=== PATIENT | female | born 1955 ===

== ENCOUNTER → 2018-12-13 | Outpatient (CLI) | payer OTHER ==
[~2018-12-13] VITALS: Ht 170.2 cm; Wt 64.9 kg
[~2018-12-13] MED LIST: AMITRIPTYLINE H10 M3 PO; ARMOUR THYROID60 M1 PO; BIMATOPROST2.5 ML OPHTHALMIC; DYMISTA NASAL S23 GM NASAL; FEROCON CAPSUL1 EACH PO; LEVAQUIN 500 M500 M2 PO; SYNTHROID200 MCG PO
[2018-12-13 13:14] VITALS: BP 124/70
--- NOTE | 2018-12-13 13:28 | NUR ---
Pain Clinic Assessment: 1. History of Osteoarthritis: NONE History of Rheumatoid Arthritis: NONE 2. Height: 5 ft. 7 in. 170.2 cm. Weight: 143.0 lb. oz. 64.864 kg. Patient's BMI: 22.4 3. Vital Signs: BP: 124/70 Pulse: 73 Resp: 16 Temp: 02 Sat: 98 ECG Mon: 4. Pain Intensity: 5 5. Fall Risk: Dizziness: N Needs help standing or walking: N Fallen in the last 3 months: N Fall risk comments: 6. Patient on Blood Thinner: None 7. History of Hypertension: N 8. Opioid Therapy greater than 6 weeks: Opiate Contract Signed: 9. Risk Assessment Tool Provided: 10. Functional Assessment Tool: 11. Recreational Drug Use: Never Drug Type: Tobacco Use: Never Smoker Tobacco Type: Amount or Packs/day: How Many Years: Alcohol Use: Yes Frequency: Weekly Quant: 2-3
--- NOTE | 2018-12-21 09:13 | HPC ---
[facility] [address] [place] [address] PAIN MANAGEMENT CONSULTATION Name: FORTUNATO LEE Room #: REG FATEMEH Ben[facility]is.#: [id number] Admission: 12/13/18 ������������������ Attend Phys: Sinan Dickey DO Discharge: ������������������ Date of : 59 Report #: [id number] THIS REPORT FOR: //name// CC: [facility] physician/PCP Sinan North NP DATE OF SERVICE: 12/13/2018 CHIEF COMPLAINT: Neck pain, left upper extremity pain and paresthesias. HISTORY OF PRESENT ILLNESS: As you know, the patient is a very pleasant 63-year-old female who has been referred to our service by her Neurosurgery Team for evaluation for cervical radiculopathy. The patient states her neck pain and left upper extremity pain began about 1 year ago, progressively worsened. She indicates no specific injury or trauma that may have led to symptom recurrence. She has trialled conservative medication therapy, but has not noted significant pain improvement. She sought evaluation through Neurosurgery of [facility], seeing their nurse practitioner, Kelli North to discuss treatment options. The patient was evaluated and advised of the changes noted at her C5-C6 level with left foraminal stenosis, believed to be the source of the symptoms. She was subsequently referred to our clinic to trial cervical epidural injections under fluoroscopic guidance before surgical options are entertained. The patient indicates today pain is continuous, momentary and transient. Describes the pain as gnawing, tender, aching, numbness and tingling. Places current pain score 5/10, daily average of 4-8/10, worst that pain has been is 8/10. The patient states movement tends to exacerbate symptoms, rest tends to improve pain. She has been referred to our service to discuss treatment options for cervical radiculopathy. PAST MEDICAL HISTORY: 1. Anemia. 2. Osteoarthritis, requiring bilateral hip replacements. 3. Chronic headaches. 4. Rasta's thyroiditis. PAST SURGICAL HISTORY: 1. Right total hip arthroplasty. 2. Lumbar fusion at L4 through S1. 3. Left hip replacement. 4. Lumbar fusion, L3-L4. 5. Lumbar decompression. 6. Psoas muscle release. 7. Sinus surgery. [facility] [address] [place] [address] PAIN MANAGEMENT CONSULTATION Name: FORTUNATO LEE Room #: REG [facility].#: [id number] Admission: 12/13/18 ������������������ Attend Phys: Sinan Dickey DO Discharge: ������������������ Date of : 59 Report #: [id number] SOCIAL HISTORY: The patient denies tobacco, alcohol, IV or illicit drug use. She is working, not receiving workmen's compensation nor is she trying to obtain disability benefits. She is not in litigation in regards to her pain. She is unaccompanied at today's visit. REVIEW OF SYSTEMS: Positive for chronic headaches, wearing corrective eyewear, chronic sinus problems with rhinitis, lightheadedness and dizziness, numbness and tingling sensations, Rasta's thyroiditis. All other review of systems negative per 12-point review of systems other than those listed in history of present illness. Pain impact score 62/70 indicating severe interference of daily activities secondary to pain. ALLERGIES: PENICILLIN, SULFA, TETANUS. CURRENT MEDICATIONS: Bimatoprost one drop each eye per day, iron supplementation 1 tab per day, Astelin-fluticasone 1 spray each nostril twice a day, Tensed Thyroid 60 mg once a day, levothyroxine 200 mcg per day. IMAGING: MRI cervical spine obtained 08/24/2018, shows minimal disk bulge at C5-C6 with canal measuring 9-10 mm, uncovertebral joint hypertrophy causing [id number] left and mild right neural foraminal stenosis. There is moderate uncovertebral joint changes at all levels of the cervical spine. At C3-C4, there is a mild right foraminal tapering. No significant impingement of the canal at any level. PHYSICAL EXAMINATION: VITAL SIGNS: Blood pressure 124/70, pulse is 73, respiratory rate 16 and unlabored. The patient is 98% on room air. Height 5 feet 7 inches tall, weight 143 pounds, BMI calculated 22.4. GENERAL: Well-developed, well-nourished, well-hydrated 63-year-old female. She appears her stated age. She is placing pain score today at 5/10. HEENT: Normocephalic, atraumatic. Pupils equal, round, reactive to light. Extraocular muscles are intact. Sclerae nonicteric without injection. NEUROLOGIC: Cranial nerves 2-12 grossly intact. Speech is fluent. The patient deemed a good historian. LUNGS: Clear, no wheeze, rhonchi or rales. CARDIOVASCULAR: Regular. No appreciable gallop, no rub. ABDOMEN: Soft, nontender, nondistended, normal and active bowel sounds. EXTREMITIES: Show no clubbing, no cyanosis, and no edema. MUSCULOSKELETAL: Upper extremity strength appears symmetrical 5/5, muscle bulk and tone equal and symmetrical in comparing left upper extremity and right. Deep tendinous reflexes are 2+/4 at biceps, brachialis and triceps bilaterally. Cervical provocation testing is met with increasing pain with lateral flexion [address] [address] PAIN MANAGEMENT CONSULTATION Name: FORTUNATO LEE Room #: REG FATEMEH Galindo#: [id number] Admission: 12/13/18 ������������������ Attend Phys: Sinan Dickey DO Discharge: ������������������ Date of : 59 Report #: [id number] and rotation to the left. There is mild restriction of motion. No crepitus noted with movement. Spurling's test positive left, negative right. ASSESSMENT: 1. Cervical radiculopathy. 2. Displacement of cervical intervertebral disk with radiculopathy. 3. Cervical spondylosis with radiculopathy. 4. Cervical foraminal stenosis. 5. Chronic intractable pain. PLAN: 1. The patient has been referred to our service by her Neurosurgery Team for evaluation for cervical radiculopathy. It does appear the patient is suffering from cervical radicular changes involving the neural foramen at C5-C6 level on the left side where she shows severe foraminal narrowing. We have discussed with the patient the treatment options for cervical radiculopathy secondary to the findings of her MRI examination. These treatment options include the following: We discussed physical therapy, stretching exercises and the use of traction techniques as a conservative option. We discussed medication management, adding a neuropathic pain medication and low dose opioid for pain control as well as an anti-inflammatory. We discussed the requested cervical epidural injection under fluoroscopic guidance. We also discussed the use of a spinal cord stimulator technology and ultimately surgical options. After reviewing the risks and benefits of all the proposed treatment options, the patient chose to move forward with a cervical epidural injection under fluoroscopic guidance. The patient was advised that third constitution party payer restrictions require that authorization be obtained before the patient could undergo cervical epidural injection. We will begin the authorization process immediately and contact the patient once we have this available. We will have the patient return to undergo the first in a series of cervical epidural injections once this authorization has been completed. 2. The patient will be provided amitriptyline 10 mg dose. She will start 1 tab p.o. bedtime for 2 nights, then increase to 20 mg or 2 tabs at night for 2 nights, then increase to 3 tabs if necessary. I have given the patient #90 tablets to begin the amitriptyline. This will help with neuropathic pain control. She has been on amitriptyline in the past and did well with the medication. We are hopeful she will see neuropathic improvement in symptoms with the therapy. 3. We will see the patient back in followup visit once we have achieved authorization to undergo cervical epidural injection per the request of Neurosurgery at [facility], nurse practitioner, Kelli North. [address] [address] PAIN MANAGEMENT CONSULTATION Name: FORTUNATO LEE Room #: REG [facility] Josie#: [id number] Admission: 12/13/18 ������������������ Attend Phys: Sinan Dickey DO Discharge: ������������������ Date of : 59 Report #: [id number] We wish to thank nurse practitioner, Kelli North for the referral of the patient to our clinic. We will keep you apprised of her response to treatment as we address her cervical radicular symptoms. Again, we wish to thank you for the opportunity to see the patient in consultation. ��������������������������������������������� <ELECTRONICALLY SIGNED> ���������������������������������������� By: Sinan Dickey DO ��������������������������������������������� 12/21/18 0913 [id number] Sinan Dickey DO /nt
== END ==
LOC: PAIN 07:04
DX: M19.90 Unspecified osteoarthritis, unspecified site (principal); R51 Headache; G89.29 Other chronic pain; D64.9 Anemia, unspecified; E06.3 Autoimmune thyroiditis; Z96.643 Presence of artificial hip joint, bilateral; Z98.890 Other specified postprocedural states

== ENCOUNTER → 2018-12-20 | Outpatient (CLI) | payer OTHER ==
[~2018-12-20] VITALS: Ht 170.2 cm; Wt 64.9 kg
--- NOTE | ~2018-12-20 | HPC ---
[facility] [place] [address] PAIN MANAGEMENT CONSULTATION Name: FORTUNATO LEE Room #: REG FATEMEH [place].#: [id number] Admission: 12/20/18 ������������������ Attend Phys: Sinan Dickey DO Discharge: ������������������ Date of : 59 Report #: [id number] THIS REPORT FOR: //name// CC: [facility] physician/PCP Sinan North NP DATE OF SERVICE: 12/20/2018 CHIEF COMPLAINT: Neck pain, left upper extremity pain and paresthesias. HISTORY OF PRESENT ILLNESS: As you know, the patient is a very pleasant 63-year-old female who returns to our clinic today having received precertification to undergo first in the series of cervical epidural injections under fluoroscopic guidance to address cervical radiculopathy. The patient returns today with pain level of 5/10, states her pain is continuous, momentary and transient when presenting with aching, gnawing, tenderness, numbness and tingling. She denies any changes in medical history since our visit last week. She returns for the first in a series of cervical epidural injections to address cervical radiculopathy. ALLERGIES: PENICILLIN, SULFA, TETANUS. CURRENT MEDICATIONS: Bimatoprost, iron supplement, Astelin, Wilmar Thyroid, levothyroxine. SOCIAL HISTORY: The patient denies tobacco, alcohol, IV or illicit drug use. She is working, not receiving workmen's compensation, unaccompanied today. IMAGING: No new imaging available. PHYSICAL EXAMINATION: VITAL SIGNS: Blood pressure 135/76, pulse is 92, respiratory rate 14 and unlabored. The patient is 100% on room air. Height 5 feet 7 inches tall, weight 143 pounds, BMI calculated 22.4. GENERAL: Well-developed, well-nourished, well-hydrated 63-year-old female appearing her stated age. She is placing current pain score at around 5/10. HEENT: Normocephalic, atraumatic. Pupils equal, round, reactive to light. Extraocular muscles are intact. Sclerae nonicteric without injection. NEUROLOGIC: Cranial nerves 2-12 grossly intact. Speech fluent. The patient deemed an excellent historian. LUNGS: Clear. No wheeze, rhonchi or rales. CARDIOVASCULAR: Regular. No appreciable gallop or rub. ABDOMEN: Soft, nontender, nondistended. EXTREMITIES: Show no clubbing, no cyanosis, and no edema. MUSCULOSKELETAL: Upper extremity strength is 5/5. Muscle bulk and tone is [facility] [address] [place] [address] PAIN MANAGEMENT CONSULTATION Name: FORTUNATO LEE Room #: [facility]#: [id number] Admission: 12/20/18 ������������������ Attend Phys: Sinan Dickey DO Discharge: ������������������ Date of : 59 Report #: [id number] symmetrical when comparing left upper extremity to right. Deep tendon reflexes 2+/4, biceps brachialis, and triceps. Cervical provocation testing is met with a slight increase in pain with lateral flexion and rotation left, negative right. Spurling's test positive left. ASSESSMENT: 1. Cervical radiculopathy. 2. Displacement of a cervical intervertebral disk with radiculopathy. 3. Cervical spondylosis with radiculopathy. 4. Cervical foraminal stenosis. 5. Chronic intractable pain. PLAN: 1. The patient has returned today in followup visit having received precertification to undergo the first in a series of cervical epidural injections under fluoroscopic guidance. We have discussed with the patient the risks and benefits of this procedure. These risks include but are not necessarily limited to bleeding, bruising, infection, worsening pain, no relief of pain, also risk of temporary or permanent muscle weakness, temporary or permanent nerve damage, possible paralysis, post-dural puncture headache and . The patient states he understood and wished to proceed. 2. No medication changes made at today's visit. The patient will continue current medical therapy as previously prescribed. 3. We will see the patient back in followup visit in approximately 3 weeks. At that time, review the efficacy of today's cervical epidural injection to determine if next in the series might be warranted. ��������������������������������������������� ���������������������������������������� By: ��������������������������������������������� 0904 01 Sinan Dickey DO /nt
--- NOTE | ~2018-12-20 | P ---
[facility] [place] [address] PROCEDURE REPORT Name: FORTUNATO LEE Room #: REG FATEMEH Galindo#: [id number] Admission: 12/20/18 ������������������ Attend Phys: Sinan Dickey DO Discharge: ������������������ Date of : 59 Report #: [id number] THIS REPORT FOR: //name// CC: [facility] physician/PCP Sinan North NP DATE OF SERVICE: 12/20/2018 DESCRIPTION OF PROCEDURE: C7-T1 cervical epidural steroid injection under fluoroscopic guidance. This is the first procedure of the first series that the patient is undergoing. After obtaining written consent, the patient was taken back to the fluoroscopy suite and placed in a prone position with separate pillows under chest and forehead to decrease cervical lordosis. The skin overlying the cervical area was prepped and draped in an aseptic fashion. The C7-T1 vertebral interspace was identified by AP fluoroscopy. The skin and subcutaneous tissue overlying the target site of injection was anesthetized using 3 mL of 1% lidocaine. A 20-gauge 3-1/2-inch Tuohy needle was advanced under fluoroscopic guidance toward the epidural space using a midline approach. The epidural space was identified using a loss of resistance to air technique. After negative aspiration for heme or cerebrospinal fluid, a total of 0.5 mL of Omnipaque was injected. A cervical epidurogram was confirmed using AP and oblique fluoroscopy. After negative aspiration for heme or cerebrospinal fluid, 5 mL of a solution containing 2 mL 40 mg per mL, 80 mg total triamcinolone and 3 mL lidocaine 1% was injected in increments. Contrast spread was noted from posterior epidural space. The needle was then retracted approximately chcf and the needle track was flushed with 1 mL of 1% lidocaine. There were no apparent new sensory deficits in the upper extremities present following the procedure. A sterile bandage was placed over the injection site. The heart rate, pulse oximetry and blood pressure were continuously monitored after the procedure. There were no apparent complications. The patient tolerated the procedure well and was carefully escorted in the recovery room in stable condition. After meeting discharge criteria, the patient was discharged home. ��������������������������������������������� ���������������������������������������� By: ��������������������������������������������� 0904 06 Sinan Dickey DO /nt
[2018-12-20 13:51] VITALS: BP 135/76
--- NOTE | 2018-12-20 13:58 | NUR ---
Pain Clinic Assessment: 1. History of Osteoarthritis: NONE History of Rheumatoid Arthritis: NONE 2. Height: 5 ft. 7 in. 170.2 cm. Weight: 143.0 lb. oz. 64.864 kg. Patient's BMI: 22.4 3. Vital Signs: BP: 135/76 Pulse: 92 Resp: 14 Temp: 02 Sat: 100 ECG Mon: 4. Pain Intensity: 5 5. Fall Risk: Dizziness: N Needs help standing or walking: N Fallen in the last 3 months: N Fall risk comments: 6. Patient on Blood Thinner: None 7. History of Hypertension: N 8. Opioid Therapy greater than 6 weeks: Opiate Contract Signed: 9. Risk Assessment Tool Provided: low -0 10. Functional Assessment Tool: 50/70 11. Recreational Drug Use: Never Drug Type: Tobacco Use: Never Smoker Tobacco Type: Amount or Packs/day: How Many Years: Alcohol Use: Yes Frequency: Weekly Quant: 3-4
== END | disposition home or self-care (01) ==
LOC: PAIN 06:58
DX: M50.10 Cervical disc disorder with radiculopathy, unspecified cervical region (principal); Z88.2 Allergy status to sulfonamides; Z88.0 Allergy status to penicillin; Z88.8 Allergy status to other drugs, medicaments and biological substances; Z79.899 Other long term (current) drug therapy; G89.29 Other chronic pain; M48.02 Spinal stenosis, cervical region

== ENCOUNTER → 2019-02-21 | Outpatient (CLI) | payer OTHER ==
[~2019-02-21] VITALS: Ht 170.2 cm; Wt 59.9 kg
[~2019-02-21] MED LIST changes: +DICLOFENAC POTA50 MG PO
--- NOTE | 2019-02-21 15:14 | NUR ---
Pain Clinic Assessment: 1. History of Osteoarthritis: neck History of Rheumatoid Arthritis: NONE 2. Height: ft. in. cm. Weight: lb. oz. kg. Patient's BMI: 3. Vital Signs: BP: Pulse: Resp: Temp: 02 Sat: ECG Mon: 4. Pain Intensity: 4 5. Fall Risk: Dizziness: N Needs help standing or walking: N Fallen in the last 3 months: N Fall risk comments: 6. Patient on Blood Thinner: None 7. History of Hypertension: N 8. Opioid Therapy greater than 6 weeks: Opiate Contract Signed: 9. Risk Assessment Tool Provided: low -0 10. Functional Assessment Tool: 50/70 11. Recreational Drug Use: Never Drug Type: Tobacco Use: Never Smoker Tobacco Type: Amount or Packs/day: How Many Years: Alcohol Use: Yes Frequency: Quant:
[2019-02-21 15:21] VITALS: BP 124/74
--- NOTE | 2019-02-21 15:22 | NUR ---
Pain Clinic Assessment: 1. History of Osteoarthritis: neck History of Rheumatoid Arthritis: NONE 2. Height: 5 ft. 7 in. 170.2 cm. Weight: 132.0 lb. oz. 59.875 kg. Patient's BMI: 20.7 3. Vital Signs: BP: 124/74 Pulse: 104 Resp: 16 Temp: 02 Sat: 97 ECG Mon: 4. Pain Intensity: 4 5. Fall Risk: Dizziness: N Needs help standing or walking: N Fallen in the last 3 months: N Fall risk comments: 6. Patient on Blood Thinner: None 7. History of Hypertension: N 8. Opioid Therapy greater than 6 weeks: Opiate Contract Signed: 9. Risk Assessment Tool Provided: low -0 10. Functional Assessment Tool: 50/70 11. Recreational Drug Use: Never Drug Type: Tobacco Use: Never Smoker Tobacco Type: Amount or Packs/day: How Many Years: Alcohol Use: Yes Frequency: Quant:
--- NOTE | 2019-02-22 12:16 | HPC ---
[facility] [address] [place] [address] PAIN MANAGEMENT CONSULTATION Name: FORTUNATO LEE Room #: REG FATEMEH [facility].#: [id number] Admission: 02/21/19 ������������������ Attend Phys: Sinan Dickey DO Discharge: ������������������ Date of : 59 Report #: [id number] THIS REPORT FOR: //name// CC: FAM physician/PCP Sinan Alexis NP DATE OF SERVICE: 02/21/2019 REFERRING PHYSICIAN: Kelli Alexis, nurse practitioner. CHIEF COMPLAINT: Neck pain and left upper extremity pain with paresthesias. HISTORY OF PRESENT ILLNESS: As you know, the patient is a very pleasant 63-year-old female who returns today in followup visit to undergo next in the series of cervical epidural injections to address her residual 4/10 pain. She states her pain is located in the neck and left upper extremity, been present for about 1 year. She describes the pain as continuous, momentary, transient, aching, gnawing, tender, numbness and tingling. Movement exacerbates symptoms, rest tends to improve the pain as has the previous epidural injection, which gave 80% improvement in overall pain, which according to the patient is ongoing. She returns today in followup visit requesting to undergo next in the series of cervical epidural injections to build on success of previous intervention. The patient denies new injury, new trauma or any changes in her medical history since our last visit. ALLERGIES: PENICILLIN, SULFA and TETANUS. CURRENT MEDICATIONS: Elavil 30 mg p.o. at bedtime, bimatoprost one drop each eye per day, Dymista nasal spray twice a day, [place] Thyroid 60 mg per day and levothyroxine 200 mcg per day. SOCIAL HISTORY: The patient denies tobacco, alcohol, IV or illicit drug use. She is working, not receiving workmen's compensation, unaccompanied today. IMAGING DATA: No new imaging available. PHYSICAL EXAMINATION: VITAL SIGNS: Blood pressure 124/74, pulse 104 and respiratory rate 16 and unlabored. The patient is 97% on room air. Height 5 feet 7 inches tall, weight 132 pounds and BMI calculated 20.7. GENERAL: Well-developed, well-nourished, well-hydrated 63-year-old female appearing stated age, pain is rated at 4/10. HEENT: Normocephalic and atraumatic. Pupils equal, round and reactive to light. EXTREMITIES: Show no clubbing, no cyanosis and no edema. [facility] [address] [place] [address] PAIN MANAGEMENT CONSULTATION Name: FORTUNATO LEE Room #: REG [facility]#: [id number] Admission: 02/21/19 ������������������ Attend Phys: Sinan Dickey DO Discharge: ������������������ Date of : 59 Report #: [id number] MUSCULOSKELETAL: Upper extremity strength equal and symmetrical 5/5. Muscle bulk and tone is symmetrical when comparing left upper extremity and right and tendinous reflexes at biceps, brachioradialis and triceps equal and symmetrical. Cervical provocation testing is met with increasing pain mainly with lateral flexion to the left. Spurling's test positive left. Intact to light touch from C5-T1 dermatomes. ASSESSMENT: 1. Cervical radiculopathy. 2. Displacement of the cervical intervertebral disk with radiculopathy. 3. Cervical spondylosis with radiculopathy. 4. Cervical neural foraminal stenosis. 5. Chronic intractable pain. PLAN: 1. The patient has returned today in followup visit having noted 80% improvement in overall symptoms with previous cervical epidural injection. She returns today in followup visit to undergo next in the series of cervical injections. She has been advised risks and benefits of the procedure, states understood and wished to proceed. 2. I did discuss with the patient. We have one remaining cervical epidural injection to be provided in the next 5 months. We will have the patient return on an as needed basis to undergo this final in the series of cervical injections if necessary. We are hopeful the patient will see excellent benefit with today's procedure, being able to maintain good and prolonged analgesic therapy. 3. No medication changes made at today's visit. The patient will continue current medical therapy as previously prescribed. 4. We will see the patient back in followup visit on an as needed basis. PROCEDURE NOTE DESCRIPTION OF PROCEDURE: C7-T1 cervical epidural steroid injection under fluoroscopic guidance. This is the second procedure of the first series that the patient is undergoing. After obtaining written consent, the patient was taken back to the fluoroscopy suite and placed in a prone position with separate pillows under chest and forehead to decrease cervical lordosis. The skin overlying the cervical area was prepped and draped in an aseptic fashion. The C7-T1 vertebral interspace was identified by AP fluoroscopy. The skin and subcutaneous tissue overlying the target site of injection was anesthetized using 3 mL of 1% lidocaine. A 20-gauge 3-1/2 inch Tuohy needle was advanced under fluoroscopic guidance toward the epidural space using a midline approach. The epidural space was identified using a loss of resistance to air technique. After negative [facility] [address] [place] [address] PAIN MANAGEMENT CONSULTATION Name: FORTUNATO LEE Room #: EMILY [facility]#: [id number] Admission: 02/21/19 ������������������ Attend Phys: Sinan Dickey DO Discharge: ������������������ Date of : 59 Report #: [id number] aspiration for heme or cerebrospinal fluid, a total of 1 mL of Omnipaque was injected. A cervical epidurogram was confirmed using AP and oblique fluoroscopy. After negative aspiration for heme or cerebrospinal fluid, 5 mL of a solution containing 2 mL 40 mg per mL, 80 mg total triamcinolone, 3 mL lidocaine 1% was injected in increments. Contrast spread was noted from posterior epidural space. The needle was then retracted approximately skilled nursing and the needle track was flushed with 1 mL of 1% lidocaine. There were no apparent new sensory deficits in the upper extremities present following the procedure. A sterile bandage was placed over the injection site. The heart rate, pulse oximetry and blood pressure were continuously monitored after the procedure. There were no apparent complications. The patient tolerated the procedure well and was carefully escorted in the recovery room in stable condition. After meeting discharge criteria, the patient was discharged home. ��������������������������������������������� <ELECTRONICALLY SIGNED> ���������������������������������������� By: Sinan Dickey DO ��������������������������������������������� 02/22/19 1216 [id number] Sinan Dickey DO /nt
== END | disposition home or self-care (01) ==
LOC: PAIN 01-10 06:51
DX: M50.10 Cervical disc disorder with radiculopathy, unspecified cervical region (principal); M47.22 Other spondylosis with radiculopathy, cervical region; M48.02 Spinal stenosis, cervical region; G89.29 Other chronic pain; Z88.0 Allergy status to penicillin; Z88.2 Allergy status to sulfonamides; Z88.8 Allergy status to other drugs, medicaments and biological substances; Z79.899 Other long term (current) drug therapy; Z98.890 Other specified postprocedural states

== ENCOUNTER → 2019-05-23 | Outpatient (CLI) | payer OTHER ==
[~2019-05-23] VITALS: Ht 170.2 cm; Wt 61.3 kg
[2019-05-23 09:16] VITALS: BP 135/87
--- NOTE | 2019-05-23 09:25 | NUR ---
Pain Clinic Assessment: 1. History of Osteoarthritis: neck SPINE HIPS HANDS History of Rheumatoid Arthritis: NONE 2. Height: 5 ft. 7 in. 170.2 cm. Weight: 135.2 lb. oz. 61.326 kg. Patient's BMI: 21.2 3. Vital Signs: BP: 135/87 Pulse: 76 Resp: 14 Temp: 02 Sat: 100 ECG Mon: 4. Pain Intensity: 5-W/ MOVEMENT 5. Fall Risk: Dizziness: N Needs help standing or walking: N Fallen in the last 3 months: N Fall risk comments: 6. Patient on Blood Thinner: None 7. History of Hypertension: N 8. Opioid Therapy greater than 6 weeks: Opiate Contract Signed: 9. Risk Assessment Tool Provided: low -0 10. Functional Assessment Tool: 50/70 11. Recreational Drug Use: Never Drug Type: Tobacco Use: Never Smoker Tobacco Type: Amount or Packs/day: How Many Years: Alcohol Use: Yes Frequency: Quant:
--- NOTE | 2019-05-31 09:31 | HPC ---
[facility] [address] [address] PAIN MANAGEMENT CONSULTATION Name: FORTUNATO LEE Room #: REG FATEMEH [facility]#: [id number] Admission: 05/23/19 ������������������ Attend Phys: Sinan Dickey DO Discharge: ������������������ Date of : 59 Report #: [id number] THIS REPORT FOR: //name// CC: ALYSSIA physician/PCP Sinan North NP DATE OF SERVICE: 05/23/2019 CHIEF COMPLAINT: Right thumb trigger syndrome. HISTORY OF PRESENT ILLNESS: As you know, the patient is a very pleasant 64-year-old female who returns today in followup visit with a trigger thumb on the right side. 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 This some pain has continued. She has daily "sticking sensations of the thumb itself. She has had trigger finger injections at this thumb in the past with good efficacy. She returns today in followup visit to undergo the procedure. She reports pain is sharp, radiating, stiff and intermittent, exacerbated with activity, improves with nothing to date. She has trialed topical agents and oral medications as well as stretching exercise without efficacy. She returns today in followup visit to undergo a right trigger thumb injection under fluoroscopy. ALLERGIES: PENICILLIN, SULFA, TETANUS. CURRENT MEDICATIONS: Bimatoprost, iron supplementation, Astelin, [place] Thyroid, levothyroxine. SOCIAL HISTORY: The patient denies tobacco, alcohol, IV or illicit drug use. She is working, not receiving workmen's compensation, unaccompanied today. IMAGING: No new imaging available. PHYSICAL EXAMINATION: VITAL SIGNS: Blood pressure 135/87, pulse is 76, respiratory rate 14 and unlabored. The patient is 100% on room air. Height 5 feet 7 inches tall, weight 135.2 pounds, BMI calculated 21.2. GENERAL: Well-developed, well-nourished, well-hydrated 63-year-old female appearing stated age, pain is rated around 5/10 directly overlying the tendon sheath of the right thumb. Distal pulses appears normal. She is intact to light touch from C5-T1 dermatomes. ASSESSMENT: 1. Right trigger thumb. 2. Right thumb pain. [facility] [address] [place] [address] PAIN MANAGEMENT CONSULTATION Name: FORTUNATO LEE Room #: REG [facility]#: [id number] Admission: 05/23/19 ������������������ Attend Phys: Sinan Dickey DO Discharge: ������������������ Date of : 59 Report #: [id number] PLAN: 1. The patient has returned today in followup visit to undergo a right trigger thumb injection to address the tendinitis of the sheaths of the right thumb, status post injury while doing heavy home activities. The patient denies any other activity. She has had trigger injections in the past, which have provided good benefit. She has not sought orthopedic consultation to discuss possible releases of the area. She wishes a trial of more conservative treatment. The patient has been advised risks and benefits of a right thumb trigger finger injection. These risks include but are not necessarily limited to bleeding, bruising, infection, worsening pain, no relief of pain, also risk of temporary or permanent muscle weakness, temporary or permanent joint damage. The patient states understood and wished to proceed. 2. No medication changes made at today's visit. The patient will continue current medical therapy as previously prescribed. 3. The patient and I did discuss addition of a topical agent that she can use on a consistent basis such as Voltaren gel either 1% or 3% solution. She will consider this option. She does have 1% solution at home. She will start utilizing this medication in 2 days if the injection provided today does not provide good benefit. She does not need a refill of medication at this time. 4. We will see the patient back in followup visit on an as needed basis for possible next in the series of injections. PROCEDURE NOTE DESCRIPTION OF PROCEDURE: Right trigger thumb injections under fluoroscopic guidance. After obtaining written consent, the patient was taken to the fluoroscopy suite. Image intensifier was then brought in position over the right hand and AP imaging was obtained. The area overlying the injection was then marked and prepped sterilely. A 27-gauge 1-1/4 inch needle was then used to anesthetize skin and subcutaneous tissue utilizing 0.5 mL of lidocaine 1% on both the medial aspect and lateral aspect of the thumb. A 27-gauge 1-1/4-inch needle was then advanced towards the tendinous structures both on the medial aspect and lateral aspect. After reaching our target location, 2 mL of a solution containing 1 mL, 40 mg per mL, 40 mg total triamcinolone along with 1 mL bupivacaine 0.5% was injected in a fanned out distribution for a total of 2 mL being provided. [place] were then retracted fci, flushed with 0.2 mL of lidocaine 1%, then removed. Sterile bandage placed over both injection sites. [facility] [address] [place] [address] PAIN MANAGEMENT CONSULTATION Name: PFLIPSEN,FORTUNATO Room #: REG FATEMEH [facility]#: [id number] Admission: 05/23/19 ������������������ Attend Phys: Sinan Dickey DO Discharge: ������������������ Date of : 59 Report #: [id number] The patient tolerated procedure well, carefully escorted to recovery room in stable condition. VAS before procedure rated at 5/10, VAS after procedure 0/10. ��������������������������������������������� <ELECTRONICALLY SIGNED> ���������������������������������������� By: Sinan Dickey DO ��������������������������������������������� 05/31/19 0931 [id number] Sinan Dickey DO /nt
== END | disposition home or self-care (01) ==
LOC: PAIN 06:47
DX: M65.311 Trigger thumb, right thumb (principal); M79.644 Pain in right finger(s); Z88.0 Allergy status to penicillin; Z88.2 Allergy status to sulfonamides; Z88.8 Allergy status to other drugs, medicaments and biological substances; Z79.899 Other long term (current) drug therapy